=== PATIENT | female | born 2000 ===

== ENCOUNTER 2022-02-08 12:24 | Emergency (ER) | payer OTHER ==
[~2022-02-08 12:24] MED LIST: IBU600 MG PO; PRENATAL
[2022-02-08 12:37] VITALS: BP 95/67; TEMP 98.4
[2022-02-08] MEDS ORDERED: ROBAXIN 50500 MG/TAB PO (15:46)
[2022-02-08] MEDS ORDERED: TYLENOL 500MG500 MG PO (15:46)
[2022-02-08 19:46] VITALS: PULSE 79
== END 2022-02-08 19:48 | disposition home or self-care (01) ==
LOC: COL.ER 12:24 → EDBD 12:27 → COL.ER 19:48
DX: S00.83XA Contusion of other part of head, initial encounter (principal); S00.81XA Abrasion of other part of head, initial encounter; M62.830 Muscle spasm of back; Z28.310 Unvaccinated for COVID-19; V47.6XXA Car passenger injured in collision with fixed or stationary object in traffic accident, initial encounter; Y92.415 Exit ramp or entrance ramp of street or highway as the place of occurrence of the external cause

== ENCOUNTER 2022-09-13 11:51 | Emergency (ER) | payer MEDICAID ==
[~2022-09-13 11:51] MED LIST changes: +BENADRYL25 M2 PO; +PRENATAL TABLET PO; +ROBAXIN 50500 MG/TAB PO; +TYLENOL 500MG500 MG PO
[2022-09-13 12:05] VITALS: TEMP 97.7
[2022-09-13] MEDS ORDERED: AMOXICILLIN 50500 MG PO (12:05)
[2022-09-13 12:18] VITALS: BP 144/78; PULSE 76
== END 2022-09-13 12:19 | disposition home or self-care (01) ==
LOC: COL.ER 11:51
DX: O99.611 Diseases of the digestive system complicating pregnancy, first trimester (principal); K08.89 Other specified disorders of teeth and supporting structures; Z28.310 Unvaccinated for COVID-19; Z3A.01 Less than 8 weeks gestation of pregnancy

== ENCOUNTER 2023-06-26 08:24 | Emergency (ER) | payer MEDICAID ==
[~2023-06-26] VITALS: Ht 160 cm; Wt 62.2 kg
[~2023-06-26 08:24] MED LIST changes: +AMOXICILLIN 50500 MG PO; +CEPHALEXIN500 M1 PO; +NATURAL IRON65 MG
[2023-06-26 09:11] LABS: COLLECTION METHOD CLEAN CATCH
[2023-06-26 09:13] LABS: BASO % 0.1 % (0.0-2.0); EOS # 0.3 K/mm3 (0.0-0.7); EOS % 2.9 % (0.0-4.0); GRAN % 85.7 % (42.2-75.2); HEMOGLOBIN 11.9 g/dl (12.5-16.0); LYMPH # 0.5 K/mm3 (1.2-3.4); LYMPH % 5.6 % (20.0-51.0); MEAN CELL VOLUME 81 fl (80.0-100.0); MEAN CORPUSCULAR HEMOGLOBIN 28 pg (27-31); MEAN CORPUSCULAR HGB CONC 34 g/dl (33.0-37.0); MEAN PLATELET VOLUME 9.9 fl (7.4-10.4); MONO # 0.5 K/mm3 (0.1-0.6); MONO % 5.3 % (1.7-9.3); PLATELET COUNT 202 K/mm3 (130-400); RED BLOOD COUNT 4.28 M/mm3 (4.10-5.30); REDCELL DISTRIBUTION WIDTH-CV 14.9 % (11.5-14.5)
[2023-06-26 09:15] LABS: HEMATOCRIT 34.8 % (37.0-47.0)
[2023-06-26 09:33] LABS: URINE APPEARANCE Clear (CLEAR/HAZY); URINE COLOR Amber (YELLOW)
[2023-06-26 09:34] LABS: URINE BACTERIA Moderate /hpf (NONE SEEN); URINE BLOOD Negative (NEGATIVE); URINE GLUCOSE Negative (NEGATIVE); URINE KETONE 1+ (NEGATIVE); URINE NITRATE Negative (NEGATIVE); URINE PROTEIN(semi-quant) 1+ (NEGATIVE); URINE UROBILINOGEN 0.2 E.U/dL (0.2-1.0)
[2023-06-26 09:36] LABS: ALBUMIN 3.2 gm/dL (3.5-5.0); BILIRUBIN,TOTAL 0.7 mg/dL (0.2-1.2); CALCIUM 9.4 mg/dL (8.4-10.2); CREATININE, serum 0.7 mg/dL (0.57-1.11); POTASSIUM 3.4 mmol/L (3.5-4.5); TOTAL PROTEIN 7.4 gm/dL (6.2-8.1)
[2023-06-26 11:07] VITALS: TEMP 99.6
[2023-06-26 11:41] VITALS: BP 101/46; PULSE 109
[2023-06-26] MEDS ORDERED: TYLENOL 325MG325 MG PO (11:54)
== END 2023-06-26 11:53 | disposition home or self-care (01) ==
LOC: COL.ER 08:24
PROVIDERS: Family Medicine
DX: O98.512 Other viral diseases complicating pregnancy, second trimester (principal); J10.1 Influenza due to other identified influenza virus with other respiratory manifestations; Z3A.16 16 weeks gestation of pregnancy

== ENCOUNTER 2023-12-25 06:42 | Inpatient (IN) | payer OTHER ==
[~2023-12-25] VITALS: Ht 160 cm; Wt 70.9 kg
[2023-12-25] VITALS (11 sets, daily range): BP systolic 91–107; BP diastolic 49–69; PULSE 71–90; TEMP 98–98.3
[~2023-12-25 06:42] MED LIST changes: +TYLENOL 325MG325 MG PO
[2023-12-25] MEDS ORDERED: LR & Oxytocin 500 ML IV SCH (07:15)
[2023-12-25] MEDS ORDERED: LR 1,000 ML IV SCH (07:15)
[2023-12-25 08:01] LABS: BASO % 0.3 % (0.0-2.0); EOS # 0.1 K/mm3 (0.0-0.7); GRAN # 10.4 K/mm3 (1.4-6.5); GRAN % 79.8 % (42.2-75.2); LYMPH # 1.8 K/mm3 (1.2-3.4); LYMPH % 13.7 % (20.0-51.0); MEAN CELL VOLUME 72 fl (80.0-100.0); MEAN CORPUSCULAR HGB CONC 30 g/dl (33.0-37.0); MEAN PLATELET VOLUME 10.1 fl (7.4-10.4); MONO # 0.6 K/mm3 (0.1-0.6); MONO % 4.4 % (1.7-9.3); PLATELET COUNT 290 K/mm3 (130-400); RED BLOOD COUNT 4.43 M/mm3 (4.10-5.30); REDCELL DISTRIBUTION WIDTH-CV 18.6 % (11.5-14.5)
[2023-12-25 08:12] LABS: HEMATOCRIT 31.9 % (37.0-47.0); HEMOGLOBIN 9.5 g/dl (12.5-16.0); MEAN CORPUSCULAR HEMOGLOBIN 21 pg (27-31)
[2023-12-25] MEDS ORDERED: Magnes Hydrox (MOM) 80 MG/ML 30 ML CUP PO PRN (08:15)
[2023-12-25] MEDS ORDERED: oxyCODONE 5 MG TAB PO PRN (08:15)
[2023-12-25] MEDS ORDERED: Acetaminophen 500 MG TAB PO PRN (08:15)
[2023-12-25] MEDS ORDERED: Ibuprofen 800 MG TAB PO SCH (08:15)
[2023-12-25] MEDS ORDERED: Naloxone 0.4 MG/ML VIAL IV PRN (08:15)
[2023-12-25] MEDS ORDERED: Loratadine 10 MG TAB PO PRN (08:15)
[2023-12-25] MEDS ORDERED: Witch Hazel 50% Pads Bulk TUB TP PRN (08:15)
[2023-12-25] MEDS ORDERED: Measles/Mumps/Rubella Virus Vaccine Live w Diluent 0.5 ML VIAL SQ SCH (08:15)
[2023-12-25] MEDS ORDERED: Phenylephrine/Mineral Oil/Petrolatum 57 GM TUBE RC PRN (08:15)
[2023-12-25] MEDS ORDERED: Mag/Al Hydrox/Simeth Susp 30 ML CUP PO PRN (08:15)
[2023-12-25] MEDS ORDERED: Sennosides/Docusate 8.6-50 MG TAB PO SCH (17:00)
[2023-12-25] MEDS ORDERED: traZODone 50 MG TAB PO PRN (21:00)
[2023-12-26 00:30] VITALS: BP 102/49; PULSE 82; TEMP 98.8
[2023-12-26 08:10] VITALS: BP 91/57; PULSE 73
[2023-12-26] MEDS ORDERED: IBU800 M1 PO (08:25)
[2023-12-26] MEDS ORDERED: TYLENOL 500MG500 MG PO (08:25)
== END 2023-12-26 12:00 | disposition home or self-care (01) | DRG 807 ==
LOC: LDRO 06:42 → LDR 07:05 → OB 07:05
PROVIDERS: Obstetrics & Gynecology; ADMIT Obstetrics & Gynecology
PROC: 10E0XZZ Delivery of Products of Conception, External Approach (ICD-10-PCS; principal; 2023-12-25)
DX: O48.1 Prolonged pregnancy (principal); Z37.0 Single live birth; O43.123 Velamentous insertion of umbilical cord, third trimester; O99.02 Anemia complicating childbirth; D64.9 Anemia, unspecified; Z3A.49 Greater than 42 weeks gestation of pregnancy
CPT/HCPCS: J2590; J7120